=== PATIENT | male | born 1975 | race Caucasian/White ===

== ENCOUNTER 2017-12-27 21:14 | Emergency (ER) | payer BC ==
[2017-12-27] MEDS ORDERED: fentaNYL 100 MCG/2 ML SDV ONE (22:43)
[2017-12-27] MEDS ORDERED: fentaNYL 100 MCG/2 ML SDV IM ONE (22:45)
--- NOTE | 2017-12-28 09:56 | CR ---
Wrist Comp Min 3V Lt INDICATION: FOOSH,PAIN COMPARISON: None FINDINGS: 3 views. Comminuted intra-articular fracture distal radius with minimal displacement and impaction of fracture fragments. Distal ulna intact. No other fractures seen.
== END 2017-12-27 23:08 | disposition home or self-care (01) ==
LOC: JP.ED 21:14
DX: S52.572A Other intraarticular fracture of lower end of left radius, initial encounter for closed fracture (principal); W19.XXXA Unspecified fall, initial encounter
CPT/HCPCS: 73110; 96372; 99284; J3010

== ENCOUNTER 2021-02-21 11:54 | Emergency (ER) | payer MEDICAID ==
[2021-02-21] MEDS ORDERED: Sodium Chloride 0.9% 10 ML Syringe FLUSH PRN (12:05)
[2021-02-21] MEDS ORDERED: Metoprolol Tartrate 5 MG/5 ML SDV IVPUSH ONE ×3 (12:07→13:58)
[2021-02-21] MEDS ORDERED: Sodium Chloride 0.9% 1,000 ML IV ONE (12:10)
[2021-02-21] MEDS ORDERED: Aspirin 81 MG Tab.Chew PO ONE (12:44)
[2021-02-21] MEDS ORDERED: Ondansetron 4 MG/2 ML SDV IVPUSH ONE (12:44)
[2021-02-21] MEDS ORDERED: LORazepam 2 MG/ML SDV IVPUSH ONE ×2 (12:48→12:49)
[2021-02-21] MEDS ORDERED: Magnesium Sulfate/Water 2 GM in Premix Bag 1 BAG IV ONE (12:50)
--- NOTE | 2021-02-21 13:12 | EDM.PDOC ---
ED HPI GENERAL MEDICAL PROBLEM - General Chief Complaint: General Stated Complaint: SOB,VOMITING Time Seen by Provider: 02/21/21 11:56 Source of Information: Reports: Patient, RN Notes Reviewed History Limitations: Reports: No Limitations - History of Present Illness INITIAL COMMENTS - FREE TEXT/NARRATIVE: Donato presents today with complaints of nausea, vomiting and diarrhea for 24 to 48 hours. He reports sometimes yesterday he felt his hear thumping and would not calm down. He tried to rest to get his heart rate to settle down but it wouldn't. He denies chest pain during symptom onset. He complains of SOB with his heart racing and being sweaty. He reports usual alcohol is hard liquor 1/5 per day. Last drink about 24 hours ago. He states he was started on some blood pressure medication a few weeks ago but the medication made his legs swell up so he stopped taking it. He reports he flew back from [place] about 7 days ago. He denies SOB after returning from his flight. He states he took two advil pm this morning to try to settle down but they did not help. He reports use of chewing tobacco daily. Alcohol use daily 1/5 per day liquor. 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 No recent use of any illicit drugs. - Related Data Allergies Allergy/AdvReac Type Severity Reaction Status Date / Time Penicillins Allergy Rash Verified 02/21/21 12:22 Home Meds: Home Meds NK [No Known Home Meds] 02/21/21 [History] Past Medical History Cardiovascular History: Reports: Hypertension Musculoskeletal History: Reports: Fracture Other Musculoskeletal History: L wrist radial Fx Psychiatric History: Reports: Addiction Social & Family History - Tobacco Use Tobacco Use Status *Q: Current Every Day Tobacco User Years of Tobacco use: 30 Packs/Tins Daily: 1 - Caffeine Use Caffeine Use: Reports: None - Alcohol Use Days Per Week of Alcohol Use: 7 Number of Drinks Per Day: 4 Total Drinks Per Week: 28 Date of Last Drink: 02/20/21 Time of Last Drink: 20:00 - Recreational Drug Use Recreational Drug Use: No ED ROS GENERAL - Review of Systems Review Of Systems: See Below Constitutional: Reports: Diaphoresis HEENT: Reports: No Symptoms Respiratory: Reports: No Symptoms Cardiovascular: Reports: Blood Pressure Problem, Dyspnea on Exertion, Edema, Lightheadedness, Orthopnea, Palpitations, PND. Denies: Chest Pain, Claudication, Syncope Endocrine: Reports: No Symptoms GI/Abdominal: Reports: No Symptoms : Reports: No Symptoms Musculoskeletal: Reports: No Symptoms Skin: Reports: Other (complaints of edema to bilateral lower extremities) Neurological: Reports: No Symptoms Psychiatric: Reports: No Symptoms Hematologic/Lymphatic: Reports: No Symptoms Immunologic: Reports: No Symptoms ED EXAM, GENERAL - Physical Exam Exam: See Below Exam Limited By: No Limitations General Appearance: Alert, WD/WN, Moderate Distress Eye Exam: Bilateral Eye: Normal Inspection, PERRL Ears: Normal External Exam, Normal Canal, Hearing Grossly Normal, Normal TMs Throat/Mouth: Normal Inspection, Normal Lips, Normal Gums, Normal Oropharynx, Normal Voice, No Airway Compromise Head: Atraumatic, Normocephalic Neck: Normal Inspection, Supple, Non-Tender, Full Range of Motion. No: Lymphadenopathy (R), Lymphadenopathy (L) Respiratory/Chest: No Respiratory Distress, Lungs Clear, Normal Breath Sounds, No Accessory Muscle Use, Chest Non-Tender, Other (tachypnic at a rate do 24 to 30 per minute) Cardiovascular: Normal Peripheral Pulses, No Murmur, No Rub, Tachycardia Peripheral Pulses: 3+: Radial (L), Radial (R) GI/Abdominal: Normal Bowel Sounds, Soft, Non-Tender, No Organomegaly, No Distention, No Abnormal Bruit, No Mass Back Exam: Normal Inspection, Full Range of Motion. No: CVA Tenderness (R), CVA Tenderness (L) Extremities: Normal Range of Motion, Non-Tender, Normal Capillary Refill, Other (2+ pedal edema bilateral lower extermities from feet to mid-calf) Neurological: Alert, Oriented, Normal Cognition, No Motor/Sensory Deficits Psychiatric: Normal Affect, Anxious Skin Exam: Intact, Normal Color, No Rash, Cool, Diaphoretic, Wound/Incision (noted uleration type wounds to lower extremities with petechail type markings around lesions. No obvious signs of infection noted, no drainage, weeping noted. ). No: Cyanosis, Petechiae Lymphatic: No Adenopathy #1 Interpretation EKG Date: 02/21/21 Time: 12:12 Rhythm: Other (SVT) P-Wave: Present Comparison: NA - No Prior EKG EKG Interpretation Comments: sinus tachycardia/SVT rate of 160 BPM QRSD 108 QT 277 QTc 451 #2 Interpretation EKG Date: 02/21/21 Time: 14:12 Rhythm: A-Fib Rate (Beats/Min): 137 ST-T: Normal Comparison: Change From Previous EKG EKG Interpretation Comments: Atrial fib Course - Vital Signs Last Recorded V/S: Last Vital Signs Temp 36.1 C 02/21/21 12:29 Pulse 132 H 02/21/21 14:07 Resp 27 H 02/21/21 14:07 BP 122/90 02/21/21 14:07 Pulse Ox 97 02/21/21 14:07 - Orders/Labs/Meds Orders: Active Orders 24 hr Category Date Time Status EKG Documentation Completion [RC] ASDIRECTED Care 02/21/21 12:06 Active EKG Documentation Completion [RC] ASDIRECTED Care 02/21/21 14:01 Active UA W/MICROSCOPIC [URIN] Stat Lab 02/21/21 12:09 Ordered Magnesium Sulfate/Water [Magnesium Sulfate in Water 2 Med 02/21/21 12:50 Active GM/50 ML] 2 gm Premix Bag 1 bag IV ONETIME Sodium Chloride 0.9% [Saline Flush] Med 02/21/21 12:05 Active 10 ml FLUSH ASDIRECTED PRN Isolation [COMM] Stat Oth 02/21/21 13:20 Ordered Saline Lock Insert [OM.PC] Routine Oth 02/21/21 12:05 Ordered EKG 12 Lead [EK] Routine Ther 02/21/21 12:05 Ordered EKG 12 Lead [EK] Routine Ther 02/21/21 14:01 Ordered Medication Orders Magnesium Sulfate 2 gm/ Premix 50 mls @ 25 mls/hr IV ONETIME ONE Stop: 02/21/21 14:49 Last Admin: 02/21/21 13:06 Dose: 25 mls/hr Documented by: ELEN Sodium Chloride (Sodium Chloride 0.9% 10 Ml Syringe) 10 ml FLUSH ASDIRECTED PRN PRN Reason: Keep Vein Open Last Admin: 02/21/21 12:49 Dose: 10 ml Documented by: ELEN Labs: Laboratory Tests 02/21/21 02/21/21 02/21/21 Range/Units 12:11 12:11 12:11 WBC 7.5 (4.5-11.0) K/uL RBC 4.25 L (4.30-5.90) M/uL Hgb 15.4 H (12.0-15.0) g/dL Hct 45.5 (40.0-54.0) % MCV 107 H (80-98) fL MCH 36 H (27-31) pg MCHC 34 (32-36) % Plt Count 114 L (150-400) K/uL Neut % (Auto) 77.6 H (36-66) % Lymph % (Auto) 6.5 L (24-44) % [place] % (Auto) 15.6 H (2-6) % Eos % (Auto) 0.0 L (2-4) % Baso % (Auto) 0.3 (0-1) % D-Dimer, Quantitative (0.0-500.0) ng/mL Sodium 135 L (140-148) mmol/L Potassium 4.6 (3.6-5.2) mmol/L Chloride 93 L (100-108) mmol/L Carbon Dioxide 17 L (21-32) mmol/L Anion Gap 29.6 H (5.0-14.0) mmol/L BUN 16 (7-18) mg/dL Creatinine 1.7 H (0.8-1.3) mg/dL Est Cr Clr Drug Dosing 63.13 mL/min Estimated GFR (MDRD) 44 L (>60) BUN/Creatinine Ratio Not Reportable Glucose 141 H (74-106) mg/dL Calcium 8.8 (8.5-10.1) mg/dL Magnesium (1.8-2.4) mg/dL Total Bilirubin 2.2 H (0.2-1.0) mg/dL AST 859 H (15-37) U/L ALT 278 H (12-78) U/L Alkaline Phosphatase 137 H (46-116) U/L Troponin I 0.108 H* (0.000-0.056) ng/mL C-Reactive Protein 1.82 H (0.0-0.3) mg/dL NT-Pro-B Natriuret Pep (5-125) pg/mL Total Protein 7.4 (6.4-8.2) g/dL Albumin 3.4 (3.4-5.0) g/dL Globulin 4.0 H (2.3-3.5) g/dL Albumin/Globulin Ratio 0.9 L (1.2-2.2) TSH, Ultra Sensitive (0.358-3.740) uIU/mL Ethyl Alcohol mg/dL SARS CoV-2 RNA Rapid MARLYN 02/21/21 02/21/21 02/21/21 Range/Units 12:11 12:11 12:11 WBC (4.5-11.0) K/uL RBC (4.30-5.90) M/uL Hgb (12.0-15.0) g/dL Hct (40.0-54.0) % MCV (80-98) fL MCH (27-31) pg MCHC (32-36) % Plt Count (150-400) K/uL Neut % (Auto) (36-66) % Lymph % (Auto) (24-44) % [place] % (Auto) (2-6) % Eos % (Auto) (2-4) % Baso % (Auto) (0-1) % D-Dimer, Quantitative 6313.24 H (0.0-500.0) ng/mL Sodium (140-148) mmol/L Potassium (3.6-5.2) mmol/L Chloride (100-108) mmol/L Carbon Dioxide (21-32) mmol/L Anion Gap (5.0-14.0) mmol/L BUN (7-18) mg/dL Creatinine (0.8-1.3) mg/dL Est Cr Clr Drug Dosing mL/min Estimated GFR (MDRD) (>60) BUN/Creatinine Ratio Glucose (74-106) mg/dL Calcium (8.5-10.1) mg/dL Magnesium 1.2 L (1.8-2.4) mg/dL Total Bilirubin (0.2-1.0) mg/dL AST (15-37) U/L ALT (12-78) U/L Alkaline Phosphatase (46-116) U/L Troponin I (0.000-0.056) ng/mL C-Reactive Protein (0.0-0.3) mg/dL NT-Pro-B Natriuret Pep 50935 H (5-125) pg/mL Total Protein (6.4-8.2) g/dL Albumin (3.4-5.0) g/dL Globulin (2.3-3.5) g/dL Albumin/Globulin Ratio (1.2-2.2) TSH, Ultra Sensitive 3.512 (0.358-3.740) uIU/mL Ethyl Alcohol mg/dL SARS CoV-2 RNA Rapid MARLYN 02/21/21 02/21/21 Range/Units 12:11 13:33 WBC (4.5-11.0) K/uL RBC (4.30-5.90) M/uL Hgb (12.0-15.0) g/dL Hct (40.0-54.0) % MCV (80-98) fL MCH (27-31) pg MCHC (32-36) % Plt Count (150-400) K/uL Neut % (Auto) (36-66) % Lymph % (Auto) (24-44) % [place] % (Auto) (2-6) % Eos % (Auto) (2-4) % Baso % (Auto) (0-1) % D-Dimer, Quantitative (0.0-500.0) ng/mL Sodium (140-148) mmol/L Potassium (3.6-5.2) mmol/L Chloride (100-108) mmol/L Carbon Dioxide (21-32) mmol/L Anion Gap (5.0-14.0) mmol/L BUN (7-18) mg/dL Creatinine (0.8-1.3) mg/dL Est Cr Clr Drug Dosing mL/min Estimated GFR (MDRD) (>60) BUN/Creatinine Ratio Glucose (74-106) mg/dL Calcium (8.5-10.1) mg/dL Magnesium (1.8-2.4) mg/dL Total Bilirubin (0.2-1.0) mg/dL AST (15-37) U/L ALT (12-78) U/L Alkaline Phosphatase (46-116) U/L Troponin I (0.000-0.056) ng/mL C-Reactive Protein (0.0-0.3) mg/dL NT-Pro-B Natriuret Pep (5-125) pg/mL Total Protein (6.4-8.2) g/dL Albumin (3.4-5.0) g/dL Globulin (2.3-3.5) g/dL Albumin/Globulin Ratio (1.2-2.2) TSH, Ultra Sensitive (0.358-3.740) uIU/mL Ethyl Alcohol 55 mg/dL SARS CoV-2 RNA Rapid MARLYN Negative Patient lab work reviewed, Acute exacerbation CHF with significant elevation of troponin of 0.108, BNP, elevated D-dimer, MORGAN with Creat 1.7, GFR 44, significant cardiomegaly noted on chest x-ray as compared to most recent CXR completed November, with chronic alcohol use, nausea, vomiting, diarrhea for the past 24 to 48 hours. Case reviewed with Dr. Dye, he is in agreement with plan to transfer patient. Patient in agreement. Meds: Medications Generic Name Dose Route Start Last Admin Trade Name Freq PRN Reason Stop Dose Admin Magnesium Sulfate 2 gm/ Premix 50 mls @ 25 mls/hr 02/21/21 12:50 02/21/21 13:06 IV 02/21/21 14:49 25 mls/hr ONETIME ONE Administration Sodium Chloride 10 ml 02/21/21 12:05 02/21/21 12:49 Sodium Chloride 0.9% 10 Ml Syringe FLUSH 10 ml ASDIRECTED PRN Administration Keep Vein Open Discontinued Medications Generic Name Dose Route Start Last Admin Trade Name Freq PRN Reason Stop Dose Admin Aspirin 324 mg 02/21/21 12:44 02/21/21 12:53 Aspirin 81 Mg Tab.Chew PO 02/21/21 12:45 324 mg ONETIME ONE Administration Sodium Chloride 1,000 mls @ 500 mls/hr 02/21/21 12:10 02/21/21 12:15 Normal Saline IV 02/21/21 14:09 500 mls/hr .BOLUS ONE Administration Lorazepam 0.5 mg 02/21/21 12:48 02/21/21 13:00 Lorazepam 2 Mg/Ml Sdv IVPUSH 02/21/21 12:49 0.5 mg ONETIME ONE Administration Lorazepam 0.5 mg 02/21/21 12:49 02/21/21 14:24 Lorazepam 2 Mg/Ml Sdv IVPUSH 02/21/21 12:50 0.5 mg ONETIME ONE Administration Metoprolol Tartrate 5 mg 02/21/21 12:07 02/21/21 12:12 Metoprolol Tartrate 5 Mg/5 Ml Sdv IVPUSH 02/21/21 12:08 5 mg ONETIME ONE Administration Metoprolol Tartrate 5 mg 02/21/21 12:08 02/21/21 13:09 Metoprolol Tartrate 5 Mg/5 Ml Sdv IVPUSH 02/21/21 12:09 5 mg ONETIME ONE Administration Metoprolol Tartrate 5 mg 02/21/21 13:58 02/21/21 14:04 Metoprolol Tartrate 5 Mg/5 Ml Sdv IVPUSH 02/21/21 13:59 5 mg ONETIME ONE Administration Ondansetron HCl 4 mg 02/21/21 12:44 02/21/21 12:49 Ondansetron 4 Mg/2 Ml Sdv IVPUSH 02/21/21 12:45 4 mg ONETIME ONE Administration - Radiology Interpretation Free Text/Narrative:: CXR reviewed, wet read, significant cardiomegaly versus infiltrate. Radiologist read pending. MORGAN-not able to complete CTA at this time. Patient in need of cardiology, nephrology services. - Re-Assessments/Exams Free Text/Narrative Re-Assessment/Exam: 02/21/21 13:05 [facility] notified of need for patient transfer. Patient with Acute exacerbation CHF with significant elevation of troponin of 0.108, BNP, elevated D-dimer, MORGAN with Creat 1.7, GFR 44, significant cardiomegaly noted on chest x- ray as compared to most recent CXR completed November, with chronic alcohol use, nausea, vomiting, diarrhea for the past 24 to 48 hours. 02/21/21 13:15 [facility] not 02/21/21 13:[address] [facility] contacted for patient transfer. Patient status, lab work and vital signs relayed to Dr. Coats. Dr. Coats accepts patient for transfer to [facility] for acute CHF, Nausea, vomiting, diarrhea, dehydration, probable alcoholic hepatitis, hypomagnesemia. Patient in agreement with plan. 02/21/21 13:59 Cardiac rhythm atrial fibrillation at a rate do 130bpm. CHADVASc score 1 We will administer additional metoprolol 5mg IV for total of 15mg IV. [facility] notified of cardiac rhythm change. 02/21/21 14:27 [facility] [place] present to transfer patient. Departure - Departure Time of Disposition: 13:42 Disposition: DC/Tfer to SNF 03 Condition: Fair Clinical Impression: MORGAN (acute kidney injury), Acute CHF, Hypomagnesemia, Nausea & vomiting, Diarrhea, Chronic alcohol abuse, Alcoholic hepatitis, Hypotension, Dehydration, Atrial fibrillation with RVR - Discharge Information *PRESCRIPTION DRUG MONITORING PROGRAM REVIEWED*: Not Applicable *COPY OF PRESCRIPTION DRUG MONITORING REPORT IN PATIENT IAM: Not Applicable Referrals: Jose M Soriano Sr, MD [Primary Care Provider] - Forms: ED Department Discharge Sepsis Event Note (ED) - Evaluation Sepsis Screening Result: Possible Sepsis Risk - Focused Exam Vital Signs: Vital Signs Temp Pulse Pulse Resp BP BP Pulse Ox 02/21/21 14:07 132 H 27 H 122/90 97 02/21/21 14:04 131 H 112/86 02/21/21 13:51 120 H 26 H 112/86 96 02/21/21 13:37 93 28 H 115/91 H 98 02/21/21 13:09 159 H 111/87 02/21/21 13:07 27 H 111/87 97 02/21/21 12:52 143 H 17 105/79 96 02/21/21 12:40 153 H 29 H 97/79 02/21/21 12:33 28 H 104/81 97 02/21/21 12:29 36.1 C 172 H 27 H 124/86 97 02/21/21 12:12 168 H 124/86 - My Orders Last 24 Hours: My Active Orders 02/21/21 12:05 Sodium Chloride 0.9% [Saline Flush] 10 ml FLUSH ASDIRECTED PRN Saline Lock Insert [OM.PC] Routine EKG 12 Lead [EK] Routine 02/21/21 12:06 EKG Documentation Completion [RC] ASDIRECTED 02/21/21 12:09 UA W/MICROSCOPIC [URIN] Stat 02/21/21 12:50 Magnesium Sulfate/Water [Magnesium Sulfate in Water 2 GM/50 ML] 2 gm Premix Bag 1 bag IV ONETIME 02/21/21 13:20 Isolation [COMM] Stat 02/21/21 14:01 EKG Documentation Completion [RC] ASDIRECTED EKG 12 Lead [EK] Routine - Assessment/Plan Last 24 Hours: My Active Orders 02/21/21 12:05 Sodium Chloride 0.9% [Saline Flush] 10 ml FLUSH ASDIRECTED PRN Saline Lock Insert [OM.PC] Routine EKG 12 Lead [EK] Routine 02/21/21 12:06 EKG Documentation Completion [RC] ASDIRECTED 02/21/21 12:09 UA W/MICROSCOPIC [URIN] Stat 02/21/21 12:50 Magnesium Sulfate/Water [Magnesium Sulfate in Water 2 GM/50 ML] 2 gm Premix Bag 1 bag IV ONETIME 02/21/21 13:20 Isolation [COMM] Stat 02/21/21 14:01 EKG Documentation Completion [RC] ASDIRECTED EKG 12 Lead [EK] Routine Assessment:: MORGAN (acute kidney injury), Acute CHF, Hypomagnesemia, Nausea & vomiting, Diarrhea, Chronic alcohol abuse, Alcoholic hepatitis, Hypotension, Dehydration, Atrial fibrillation with RVR Plan: Patient transfer to [facility], acceptance per See for MORGAN (acute kidney injury), Acute CHF, Hypomagnesemia, Nausea & vomiting, Diarrhea, Chronic alcohol abuse, Alcoholic hepatitis, Hypotension, Dehydration, Atrial fibrillation with RVR
--- NOTE | 2021-02-21 14:20 | CR ---
CHEST: Portable 02/21/2021 at 12:46 PM. CLINICAL HISTORY:Tachycardia COMPARISON:11/22/2020 FINDINGS: Heart is enlarged. Pulmonary vascularity appears normal. No infiltrate, effusion or pneumothorax is seen. Lung markings are exaggerated by poor inspiratory level. Impression: Moderate cardiomegaly No acute cardiopulmonary process.
== END 2021-02-21 14:57 ==
LOC: JP.ED 11:54
DX: K70.10 Alcoholic hepatitis without ascites (principal); F10.10 Alcohol abuse, uncomplicated; I95.9 Hypotension, unspecified; I48.91 Unspecified atrial fibrillation; E86.0 Dehydration; N17.9 Acute kidney failure, unspecified; I11.0 Hypertensive heart disease with heart failure; I50.9 Heart failure, unspecified; E83.42 Hypomagnesemia; Z20.822 Contact with and (suspected) exposure to COVID-19; Z72.0 Tobacco use; Z88.0 Allergy status to penicillin; Z79.899 Other long term (current) drug therapy
CPT/HCPCS: 36415; 71045; 80053; 80307; 83735; 83880; 84443; 84484; 85025; 85379; 86140; 87635; 93005; 93010; 96365; 96366; 96375; 96376; 99285; A9270; J2060; J2405; J3475; J3490; J7030; U0002